=== PATIENT | female | born 1955 | race African-American/Black ===

== ENCOUNTER 2016-12-20 10:13 | Observation (INO) | payer OTHER ==
--- NOTE | ~2016-12-20 | CN ---
Consultation Report [facility] [address] [place]. [address] NAME: BRISSA CALLEJAS : 55 STATUS : ADM Chandana PAT#: [id number] AGE: 61 ADM/REG DATE : 12/20/16 MR#: [id number] REPORT SERV DATE: 12/21/16 DICTATED BY: JUDITH BRAGA DATE: 12/20/16 REPORT STATUS : Draft TRANSCRIBED BY: MODL DATE: 12/20/16 ORTHOPEDIC FOOT AND ANKLE CONSULTATION DATE OF CONSULTATION: 12/20/2016 REASON FOR CONSULTATION: Left hallux laceration. ATTENDING PHYSICIAN: Radha Marquez M.D. I was called by the emergency department to evaluate Brissa Callejas. Ms. Callejas is a pleasant 61-year-old female, who lives at [facility]. She ambulates with a walker. She is independent. This morning, she got up to go the bathroom and hit her toe on something. She is not exactly sure what she hit her toe on. She had a deep laceration that went through the EHL tendon into the IP joint of her great toe. ER physician called me for open irrigation and debridement in the operating room. She does suffer from diabetes, seizure disorder, and some other medical conditions. See below for full details. She was most recently admitted in September of 2016 for acute encephalopathy likely secondary to elevated ammonia as well as some possible dehydration. PAST MEDICAL HISTORY: Hypertension, benign brain tumor with history of craniotomy and resection, non-insulin dependent diabetes mellitus type 2, seizure disorder, chronic iron deficiency anemia, peripheral neuropathy, and obesity. SOCIAL HISTORY: She currently resides at [facility] in the assisted-living section. She has two daughters, one of which is at the bedside. Her daughter is an ER nurse. She has previous history of tobacco use. She quit around 2001. She smoked 2 packs per day for 20 years. No significant alcohol intake. Some social alcohol use in the past, but nothing that is current. She is independent. She does ambulate independently, but requires assisted living. REVIEW OF SYSTEMS: She was in her usual state of health at the time of the evaluation. She denies fevers, chills, nausea, vomiting, abdominal pain, shortness of breath, or chest pain. Because of her severe peripheral neuropathy, she admits that she is in absolutely no pain. FAMILY HISTORY: Positive for multiple cancers throughout her siblings and parents. History of stomach cancer, throat cancer, and breast cancer. PAST SURGICAL HISTORY: She has a brain tumor resection and craniotomy in 1999, and abdominal hysterectomy. MEDICATIONS: Home medications are reviewed and attached in the MAR. PHYSICAL EXAMINATION: Consultation Report [address] [place]. [address] NAME: BRISSA CALLEJAS : 55 STATUS : ADM Chandana PAT#: [id number] AGE: 61 ADM/REG DATE : 12/20/16 MR#: [id number] REPORT SERV DATE: 12/21/16 DICTATED BY: JUDITH BRAGA DATE: 12/20/16 REPORT STATUS : Draft TRANSCRIBED BY: JESSENIA DATE: 12/20/16 VITAL SIGNS: Reveals she is afebrile. Temperature 97.8, respirations 16, pulse 93, O2 sats 100%. GENERAL: She is sitting comfortably in the hospital bed. She is alert and oriented x3. HEAD: Atraumatic. MUSCULOSKELETAL: Cervical spine nontender to gentle range of motion. EYES: Pupils equal to light and reactive. EXTREMITIES: Bilateral upper extremities, full active and passive range of motion without any discomfort. CHEST: Nonlabored breathing. ABDOMEN: Obese. HEART: Regular rate. EXTREMITIES: Bilateral lower extremities, no skin lesions involving her right lower extremity. The left lower extremity reveals a full thickness laceration on the dorsum of the foot. It extends directly into the IP joint. It goes completely through the hallux via EHL at the level of the IP joint. Cartilage in the joint is visible. LABORATORY DATA: Labs reveal a glucose of 267. White blood cell 7.7, hemoglobin 11.0. IMAGING: Left foot x-rays were taken that were normal. IMPRESSION: 1. Open dislocation of left great toe. 2. Left extensor hallucis longus laceration. 3. Left traumatic open wound. PLAN: Lengthy discussion with the patient regarding her diagnosis and treatment options. I recommended irrigation and debridement in the operating room. We would also reduce the dislocation of the toe and repair of the EHL tendon after all necrotic and devitalized tissue had been completely removed. The patient was agreeable to this plan. All of her questions were answered, consent was signed, and she wished to proceed. JAY/JESSENIA Judith Braga MD / [id number] CC: Toy Oleary M.D.
--- NOTE | ~2016-12-20 | DS ---
Discharge Summary [facility] [address] [facility] [place]. [address] NAME: JYOTI ESTRADA : 55 STATUS : DIS Chandana PAT#: [id number] AGE: 61 ADM/REG DATE : 12/20/16 MR#: [id number] REPORT SERV DATE: 12/22/16 DICTATED BY: JR. LUU WILLIAM JOHN DATE: 12/21/16 REPORT STATUS : Draft TRANSCRIBED BY: JESSENIA DATE: 12/21/16 ADMISSION DATE: 12/20/2016 DISCHARGE DATE: 12/21/2016 DISCHARGE DIAGNOSES: Include: 1. Left hallux laceration. 2. Left open hallux dislocation. 3. Left extensor hallucis longus avulsion. 4. Diabetes mellitus type 2 with neuropathy. 5. History of hypertension. 6. Seizure disorder. OPERATIONS/PROCEDURES AND TREATMENTS: Include: 1. Open treatment of IP joint dislocation, left foot EHL tendon repair. 2. Irrigation and debridement down to and including bone of a left open IP joint dislocation. 3. Left foot x-ray done 12/20/2016 showed no evidence of acute left foot abnormality. DISCHARGE MEDICATIONS: Include: 1. Norvasc 5 mg orally daily. 2. Vitamin D3 50,000 units every seven days. 3. Ferrex 150 mg daily. 4. Neurontin 300 mg orally at bedtime. 5. Keppra 750 mg orally twice a day. 6. Lactulose 30 mL every Tuesday, Tuesday, and Tuesday. 7. Mag-Ox 800 mg orally twice a day. 8. Dilantin 100 mg orally three times a day. 9. Simvastatin 10 mg orally daily. 10.Maxzide 37.5/25 one tablet every day. 11.Clonidine 0.1 mg at bedtime. 12.Clonidine TTS two patch changing every seven days. 13.Glucovance 5/500 one tablet four times a day. 14.Fioricet one tablet orally daily as needed. 15.Prevacid 30 mg orally twice a day. 16.Keflex 500 mg orally every six hours x5 days. HOSPITAL COURSE: The patient is a pleasant 61-year-old female, who resides at [facility] assisted living, who presented to the emergency room on 12/20/2016 after getting up and going to the bathroom hitting her toe with a deep laceration to the bone, including tendon. For details of the admission history, physical, and presenting data, please see Dr. Roper's dictated history and physical. The patient admitted to the hospital. She was seen in consultation by Dr. Finch and underwent a repair of the fracture/dislocation as above. The patient will complete five-day course of Keflex, weightbearing as tolerated, and follow up with Dr. Finch in one week. Discharge Summary [address] [address] NAME: JYOTI ESTRADA : 55 STATUS : DIS Chandana PAT#: [id number] AGE: 61 ADM/REG DATE : 12/20/16 MR#: [id number] REPORT SERV DATE: 12/22/16 DICTATED BY: JR. LUU WILLIAM JOHN DATE: 12/21/16 REPORT STATUS : Draft TRANSCRIBED BY: JESSENIA DATE: 12/21/16 Regarding the diabetes, neuropathy, hypertension, and seizure disorder, these were stable throughout the hospitalization and were not addressed. For discharge exam and laboratory, please see daily progress note. DISCHARGE DIET: ADA. ACTIVITY: Weightbearing as tolerated on the left foot. WJF/JESSENIA Fred Luu Jr, MD / [id number] CC: Fred Luu Jr, MD Mark Heinsohn, M.D.
--- NOTE | ~2016-12-20 | HP ---
History And Physical [id number] [place]. [address] NAME: JYOTI ESTRADA : 55 STATUS : ADM Chandana PAT#: [id number] AGE: 61 ADM/REG DATE : 12/20/16 MR#: [id number] REPORT SERV DATE: 12/20/16 DICTATED BY: SANDRA MARQUEZ DATE: 12/20/16 REPORT STATUS : Draft TRANSCRIBED BY: MODL DATE: 12/20/16 DATE OF ADMISSION: 12/20/2016 CHIEF COMPLAINT: Laceration of the left great toe. HISTORY OF PRESENT ILLNESS: The patient is a very pleasant 61-year-old female. She lives at [facility]. She ambulates with a walker. She is independent. Apparently this morning, she got up to go to the bathroom, she hit her toe on something, they are not sure what. She had a deep laceration all the way to bone and tendon. It was felt that she needed to the OR for a washout and probable closing of the wound. She does suffer from diabetes, a seizure disorder, and some other medical conditions which will be referenced below. She denies chest pain or shortness of breath. She has not had a fever. No nausea, vomiting, or diarrhea. She has, otherwise, felt well. Her last hospitalization was in September 2016, at that time, she was admitted with an acute encephalopathy, likely secondary to elevated ammonia as well as some possible dehydration. She got better though and went back to her assisted living facility. PAST MEDICAL HISTORY: 1. Hypertension. 2. Benign brain tumor with history of craniotomy and resection. 3. Znt-asisvnl-qeagpsewg diabetes mellitus type 2. 4. Seizure disorder. 5. Chronic iron deficiency anemia. 6. Peripheral neuropathy. 7. Obesity. SOCIAL HISTORY: She currently resides at [facility] in the assisted living section. She has two daughters, one which is at bedside. She had a previous history of tobacco use, she quit around 2001. She smoked two packs per day for about 20 years. No significant alcohol intake, social intake in the past, but none currently. She is fairly independent. She does ambulate independently, but requires assisted living. FAMILY HISTORY: Her family medical history is positive for multiple cancers throughout her siblings and parents. There is a history of stomach cancer, a history of throat cancer, and history of breast cancer. PAST SURGICAL HISTORY: She has had a brain tumor resection and craniotomy in 1999 and abdominal hysterectomy. MEDICATIONS: Home medications are reviewed and attached in the MAR. REVIEW OF SYSTEMS: Full 10-point review of systems obtained and pertinent positives are mentioned in the HPI. PHYSICAL EXAMINATION: VITAL SIGNS: BP 145/70, temp 97.8, respiratory rate 16, pulse 93, and saturations 100%. History And Physical [address] [address] NAME: JYOTI ESTRADA : 55 STATUS : ADM Chandana PAT#: [id number] AGE: 61 ADM/REG DATE : 12/20/16 MR#: [id number] REPORT SERV DATE: 12/20/16 DICTATED BY: SANDRA MARQUEZ DATE: 12/20/16 REPORT STATUS : Draft TRANSCRIBED BY: JESSENIA DATE: 12/20/16 GENERAL: A well-developed female. HEENT: Normocephalic and atraumatic. HEART: Regular rate and rhythm. LUNGS: Grossly clear. ABDOMEN: Soft and nontender. EXTREMITIES: Warm and dry. She has 2+ pulses at the feet. She has a large laceration in her left great toe all the way to the bone and the tendon, it is open. Hemostasis, however, has been achieved. Again, she has 2+ pulses at the feet bilaterally. LAB AND X-RAY STUDIES: All pending. EKG is pending. ASSESSMENT/PLAN: 1. Deep laceration of the left great toe. Given the patient has neuropathy and diabetes, I think it is essential to close the wound as well as wash it out. She has received a tetanus vaccine in the ER. She is going to go to the OR today. I will make her n.p.o., provide some IV fluids while she is n.p.o. We will hold her Glucovance while she is n.p.o. We will await Dr. Finch, who plans to take her to the OR this afternoon. 2. Diabetes mellitus. We will resume her Glucovance when she is allowed to eat and do fingerstick blood sugars a.c. and h.s. with level 1 sliding scale. 3. History of hypertension. We will continue her home antihypertensives. 4. History of seizure disorder. She had a Keppra this morning. She had her Dilantin this morning. I am going to go ahead and give her noon dose of Dilantin. 5. History of peripheral neuropathy. 6. Deep venous thrombosis prophylaxis. Start Lovenox tomorrow. She still in the hospital given that she has an open wound, that is bleeding, I am going to hold it today. 7. Disposition. Pending above aforementioned plan and workup. LEON/JESSENIA Sandra Marquez M.D. / [id number] CC: Juan Luis Gallegos M.D.
--- NOTE | ~2016-12-20 | OP ---
Record Of Operation [facility] [address] [facility] [place]. [address] NAME: BRISSA CALLEJAS : 55 STATUS : ADM Chandana PAT#: [id number] AGE: 61 ADM/REG DATE : 12/20/16 MR#: [id number] REPORT SERV DATE: 12/21/16 DICTATED BY: JUDITH FINCH DATE: 12/20/16 REPORT STATUS : Draft TRANSCRIBED BY: JESSENIA DATE: 12/20/16 DATE OF PROCEDURE: 12/20/2016 PREOPERATIVE DIAGNOSES: 1. Left open hallux dislocation. 2. Left EHL avulsion. POSTOPERATIVE DIAGNOSES: 1. Left open hallux dislocation. 2. Left EHL avulsion. PROCEDURE: 1. Open treatment of IP joint dislocation, [address] .. 2. Left foot EHL tendon repair, [address]. 3. Irrigation and debridement down to and including bone, left open IP joint dislocation, 50[address]. 4. Live FluoroScan imaging, intraoperative, 82165. ANESTHESIA: General. COMPLICATIONS: None. INDICATION FOR OPERATION: Brissa Callejas is a pleasant 61-year-old female who suffered the above-mentioned injury. Risks and benefits of surgical intervention were discussed at length with the patient. All of her questions were answered. She wished to proceed. DESCRIPTION OF PROCEDURE: Brissa was brought back to the operating room where general anesthesia was initiated. Left lower extremity was prepped and draped in the usual sterile fashion and an Esmarch ankle tourniquet was placed. We inspected the injury to left great toe. This was an open IP joint dislocation. The injury appeared to be an avulsion of the EHL tendon. There was a small piece of bone that emanated from the dorsal aspect of the base of the proximal phalanx that was still attached to the EHL tendon. Initially, we performed irrigation and debridement of this open wound. This included irrigation and debridement of the skin, subcutaneous tissue, deep tissue including bone. There were small bone avulsion fragments that were sharply excise. We used 3 L of a Pulsavac. Sequential irrigation and debridement was performed until all necrotic and devitalized tissue had been thoroughly removed. Next, we reduced the IP joint dislocation. Under image guidance, a 0.062 inch K-wire was advanced across the distal phalanx holding the IP joint in anatomic position. This was advanced down to the base of the proximal phalanx without passing into the MTP joint. Finally, we repaired the EHL tendon avulsion. Tendon was reduced into its anatomic footprint and this was repaired with interrupted 3-0 nylon suture. The subcutaneous tissues and skin were closed in standard fashion utilizing a "no-touch" technique with 3-0 nylon suture. Final FluoroScan imaging included AP and lateral views of the foot. Images showed acceptable hardware position with the reduction of the IP joint dislocation. The images were printed and saved. Record Of Operation [address] [address] NAME: BRISSA CALLEJAS : 55 STATUS : ADM Chandana PAT#: [id number] AGE: 61 ADM/REG DATE : 12/20/16 MR#: [id number] REPORT SERV DATE: 12/21/16 DICTATED BY: JUDITH FINCH DATE: 12/20/16 REPORT STATUS : Draft TRANSCRIBED BY: JESSENIA DATE: 12/20/16 Bulky sterile dressings were applied. K-wire was cut, bent, and capped. The patient did well throughout the case. She awoke in the operating room and was transferred to recovery room in satisfactory condition. JAY/JESSENIA Judith Finch MD / [id number]
[~2016-12-20 10:13] MED LIST: *UNABLE3; ARICEPT5 PO; BIOTIN PO; CAT1 PO; CATAPRES2 TOP; D100 PO; FERREX 150150 MG PO; FERROUS SULF325 M1 PO; FIORICET 50-301 EACH PO; GLUCOV5 PO; KEPPRA500 PO; KEPPRA750 MG PO; LACT30UDL PO; LYRICA50 PO; MAGOX4 PO; MAX25 PO; NEUR300 PO; NORV5 PO; OTC IRON; POLY IRON150 MG PO; PREV30 PO; VITD PO; ZOCOR10 PO; [UNRECOGNIZED DRUG - CODE] PO
[2016-12-20] MEDS ORDERED: GLUCOV5 PO (12:24)
[2016-12-20] MEDS ORDERED: ZOCOR10 PO (12:25)
[2016-12-20] MEDS ORDERED: NORV5 PO (12:25)
[2016-12-20] MEDS ORDERED: NEUR300 PO (12:26)
[2016-12-20] MEDS ORDERED: FERREX 150150 MG PO (12:26)
[2016-12-20] MEDS ORDERED: MAX25 PO (12:26)
[2016-12-20] MEDS ORDERED: D100 PO (12:27)
[2016-12-20] MEDS ORDERED: CAT1 PO (12:27)
[2016-12-20] MEDS ORDERED: MAGOX4 PO (12:28)
[2016-12-20] MEDS ORDERED: MAXIMUM D3 PO (12:28)
[2016-12-20] MEDS ORDERED: KEPPRA750 MG PO (12:28)
[2016-12-20] MEDS ORDERED: FIORICET 50-301 EACH PO (12:29)
[2016-12-20] MEDS ORDERED: ENULOSE PO (12:30)
[2016-12-20] MEDS ORDERED: PREV30 PO (12:30)
[2016-12-20] MEDS ORDERED: CATAPRES2 TOP (12:37)
[2016-12-20 13:19] LABS: BASOPHILS ABSOLUTE 0.08 10/3/uL (0.0-0.16); EOSINOPHILS 2.9 %; EOSINOPHILS ABSOLUTE 0.22 10/3/uL (0.0-0.53); ER CBC TAT 0 Hrs 05 Mins; HEMATOCRIT 32.7 % (36.0-48.0); IMMATURE GRANULOCYTES ABSOLUTE 0.08 10/3/uL (0.0-0.11); LYMPHOCYTES 33.1 %; LYMPHOCYTES ABSOLUTE 2.54 10/3/uL (0.67-4.30); MANUAL DIFF NO %; MEAN CORPUS HGB CONC 33.6 g/dL (32.0-36.0); MEAN CORPUSCULAR HEMOGLOB 26.1 pg (26.0-34.0); MEAN CORPUSCULAR VOLUME 77.7 fL (80-100); MEAN PLATELET VOLUME 10.6 fL (9.2-13.0); MONOCYTES 9.5 %; MONOCYTES ABSOLUTE 0.73 10/3/uL (0.21-1.20); NEUTROPHILS 52.5 %; NEUTROPHILS ABSOLUTE 4.02 10/3/uL (2.02-8.40); PLATELET COUNT 223 10/3/uL (150-400); RBC DISTRIBUTION WIDTH 14.5 % (12.0-16.0); RED CELL COUNT 4.21 10/6/uL (4.0-5.6); WHITE BLOOD CELLS 7.7 10/3/uL (4.5-10.5)
[2016-12-20 14:49] LABS: ALKALINE PHOSPHATASE 121 U/L (45-117); CALCIUM, SERUM 8.5 MG/DL (8.5-10.4); CHLORIDE, SERUM 102 MMOL/L (96-112); CREATININE 1.23 MG/DL (0.55-1.02); GFR AFRICAN AMERICAN 55 ML/MIN (>=60); GFR NON AFRICAN AMERICAN 47 ML/MIN (>=60); SGPT(ALT) 23 U/L (5-65); SODIUM, SERUM 141 MMOL/L (135-148); TOTAL PROTEIN 7.3 G/DL (6.0-8.5)
[2016-12-20 14:50] LABS: A/G RATIO 0.7 (0.7-1.9); ALBUMIN 2.9 G/DL (3.5-5.0); BUN (BLOOD UREA NITROGEN) 22 MG/DL (6-23); CO2 (CARBON DIOXIDE) 30 MMOL/L (24-34); GLOBULIN 4.4 G/DL (2.5-4.1); GLUCOSE, SERUM 260 MG/DL (60-99); POTASSIUM, SERUM 4.3 MMOL/L (3.5-5.3); SGOT(AST) 9 U/L (5-40); TOTAL BILIRUBIN < 0.1 MG/DL (0-1.2)
[2016-12-20 15:49] LABS: INTERNATIONAL NORMAL RATI 1.1 UNITS (-); PARTIAL THROMBO TIME 30.8 SEC (22.5-37.2); PROTIME (NOT ORD) 13.9 SEC (12.0-14.5)
[2016-12-21 05:19] LABS: BASOPHILS 0.7 %; BASOPHILS ABSOLUTE 0.06 10/3/uL (0.0-0.16); EOSINOPHILS 2.6 %; EOSINOPHILS ABSOLUTE 0.24 10/3/uL (0.0-0.53); HEMATOCRIT 31.1 % (36.0-48.0); HEMOGLOBIN 10.3 g/dL (12.0-16.0); IMMATURE GRANULOCYTES 0.7 %; IMMATURE GRANULOCYTES ABSOLUTE 0.06 10/3/uL (0.0-0.11); LYMPHOCYTES ABSOLUTE 2.39 10/3/uL (0.67-4.30); MANUAL DIFF NO %; MEAN CORPUS HGB CONC 33.1 g/dL (32.0-36.0); MEAN CORPUSCULAR HEMOGLOB 26.2 pg (26.0-34.0); MEAN CORPUSCULAR VOLUME 79.1 fL (80-100); MEAN PLATELET VOLUME 10.7 fL (9.2-13.0); MONOCYTES 11.5 %; MONOCYTES ABSOLUTE 1.06 10/3/uL (0.21-1.20); NEUTROPHILS 58.5 %; NEUTROPHILS ABSOLUTE 5.37 10/3/uL (2.02-8.40); PLATELET COUNT 202 10/3/uL (150-400); RBC DISTRIBUTION WIDTH 14.2 % (12.0-16.0); RED CELL COUNT 3.93 10/6/uL (4.0-5.6); WHITE BLOOD CELLS 9.2 10/3/uL (4.5-10.5)
[2016-12-21 05:56] LABS: BUN (BLOOD UREA NITROGEN) 23 MG/DL (6-23); CALCIUM, SERUM 8.5 MG/DL (8.5-10.4); CHLORIDE, SERUM 102 MMOL/L (96-112); CREATININE 1.04 MG/DL (0.55-1.02); GFR AFRICAN AMERICAN 67 ML/MIN (>=60); GFR NON AFRICAN AMERICAN 58 ML/MIN (>=60); GLUCOSE, SERUM 291 MG/DL (60-99); SODIUM, SERUM 137 MMOL/L (135-148)
[2016-12-21 05:57] LABS: CO2 (CARBON DIOXIDE) 25 MMOL/L (24-34); POTASSIUM, SERUM 4.4 MMOL/L (3.5-5.3)
[2016-12-21] MEDS ORDERED: KEPPRA500 PO (14:17)
[2017-04-23] MEDS ORDERED: NOVOLOG SC (21:24)
[2017-04-23] MEDS ORDERED: PRAND1 PO (21:24)
[2017-04-23] MEDS ORDERED: NORV10 PO (21:25)
[2017-04-23] MEDS ORDERED: ASAB PO (21:25)
[2017-04-23] MEDS ORDERED: HCTZ25B PO (21:25)
[2017-04-23] MEDS ORDERED: EXELON4.6T TOP (21:26)
[2017-04-23] MEDS ORDERED: LANTUS SC (21:26)
[2017-04-23] MEDS ORDERED: KEPPRA750 MG PO (21:26)
[2017-04-23] MEDS ORDERED: PRIN20 PO (21:26)
[2017-04-23] MEDS ORDERED: PREV30 PO (21:27)
[2017-04-23] MEDS ORDERED: POLY IRON 150 MG PO (21:27)
[2017-04-23] MEDS ORDERED: MULTIVITAMI1 PO (21:27)
[2017-04-23] MEDS ORDERED: HYDRALAZINE100 MG PO (21:33)
[2017-04-23] MEDS ORDERED: D100 PO (21:33)
[2017-04-23] MEDS ORDERED: VANCO1P IV (21:34)
[2017-04-23] MEDS ORDERED: VITD PO (21:35)
[2017-04-23] MEDS ORDERED: ALIGN4 MG PO (21:35)
[2017-04-23] MEDS ORDERED: CATAPRES3 TOP (21:36)
== END 2016-12-21 14:58 | disposition home or self-care (01) ==
LOC: ER 10:13 → SDC/OF 15:35 → 5SO 16:11 → CDU1 16:20 → CDU2 16:46
PROVIDERS: Internal Medicine; Orthopaedic Surgery Foot and Ankle Surgery; Physician Assistant
PROC: 0SS Lower Joints, Reposition (ICD-10-PCS; principal; 2016-12-20 19:45)
DX: S93.112A Dislocation of interphalangeal joint of left great toe, initial encounter (principal); S91.112A Laceration without foreign body of left great toe without damage to nail, initial encounter; S91.302A Unspecified open wound, left foot, initial encounter; I10 Essential (primary) hypertension; G40.909 Epilepsy, unspecified, not intractable, without status epilepticus; D50.9 Iron deficiency anemia, unspecified; G62.9 Polyneuropathy, unspecified; E11.40 Type 2 diabetes mellitus with diabetic neuropathy, unspecified; E66.9 Obesity, unspecified; Z87.891 Personal history of nicotine dependence; Z90.710 Acquired absence of both cervix and uterus
CPT/HCPCS: 73630-LT; 80048; 80053; 82962; 85025; 85610; 85730; 87040; 90471; 90714; 93005; 96374; 99284; A9270-GY; G0378; J0690; J3010

== ENCOUNTER 2017-01-17 15:43 | Day surgery (SDC) | payer OTHER ==
--- NOTE | ~2017-01-17 | OP ---
Record Of Operation [facility] [address] [place]. [address] NAME: BRISSA CALLEJAS : 55 STATUS : [facility]#: [id number] AGE: 61 ADM/REG DATE : 01/17/17 MR#: [id number] REPORT SERV DATE: 01/18/17 DICTATED BY: JUDITH BRAGA DATE: 01/17/17 REPORT STATUS : Draft TRANSCRIBED BY: JESSENIA DATE: 01/17/17 DATE OF PROCEDURE: 01/17/2017 PREOPERATIVE DIAGNOSES: 1. Left open hallux fracture dislocation. 2. Wound dehiscence with hardware failure. POSTOPERATIVE DIAGNOSES: 1. Left open hallux fracture dislocation. 2. Wound dehiscence with hardware failure. PROCEDURES: 1. Revision left hallux open reduction and internal fixation of an IP joint fracture dislocation. 2. Irrigation and debridement of open fracture. 3. EHL tendon repair. 4. FHL tenotomy. ANESTHESIA: General. COMPLICATIONS: None. INDICATION FOR OPERATION: Brissa Callejas is a pleasant 61-year-old diabetic with peripheral neuropathy, who suffered the above-mentioned injury. She underwent prior open reduction and internal fixation of the dislocation of the IP joint. Unfortunately, the pin recently came out of her toe while she was at home. Her daughter had noticed that the wound had "opened up." I saw her in the office today, where we recommended revision surgery. All of the patient's questions were thoroughly answered, and they wished to proceed. DESCRIPTION OF PROCEDURE: Ms Callejas was brought back to the operating room, where general anesthesia was initiated. Left lower extremity was prepped and draped in usual sterile fashion. Esmarch exsanguination was utilized and an ankle Esmarch tourniquet was placed. Thorough irrigation and debridement of the open wound on the left hallux IP joint was performed. Pulsavac irrigation was utilized. There was no evidence of gross infection to include purulence or significant necrotic tissue. We did send some local tissue samples for culture. Once the samples were sent, the patient received 2 g of IV Ancef. Next, we proceeded with sequential irrigation and debridement until 3 L of normal saline had thoroughly flushed this wound. Once flushed, we focused our attention on the toe. She had a significant contracture of the FHL tendon. This was pulling the toe in a significantly flex position. For this reason, through the joint, we performed an FHL tenotomy. We used a 15 blade to release the FHL tendon. This corrected some of this severe joint flexion contracture. Next, we performed repair of the EHL tendon. We used a 2-0 nylon suture, which was passed through the tendon and out through the nail bed. This suture captured the tendon and reduced it back to its insertion point on the base of the proximal phalanx. With the toe held in a reduced position, this EHL tendon was repaired. Next, we Record Of Operation [place] [facility] [place]. [address] NAME: BRISSA CALLEJAS : 55 STATUS : [facility] PAT#: [id number] AGE: 61 ADM/REG DATE : 01/17/17 MR#: [id number] REPORT SERV DATE: 01/18/17 DICTATED BY: JUDITH BRAGA DATE: 01/17/17 REPORT STATUS : Draft TRANSCRIBED BY: JESSENIA DATE: 01/17/17 performed open reduction and internal fixation of the IP joint dislocation. This included reduction of the deformity with percutaneous pinning utilizing a 0.062-inch K-wire. This K- wire was started through a new tract at the tip of the toe and retrograded across the IP and MTP joints with the toe held in reduced position. Two pins were placed for additional fixation. Each pin captured the head of the first metatarsal. The construct was stable at the conclusion of the case. At this time, additional irrigation was performed. Skin was closed using a "no-touch" technique on the dorsal aspect of the foot. Bulky sterile dressings were applied. Tourniquet was deflated and the toe pinked up quite nicely. Well- padded forefoot dressing was placed. The patient did well throughout the case. She woke in the operating room and was transferred to recovery room in satisfactory condition. JAY/JESSENIA Judith Braga MD / [id number] CC: Judith Braga MD
[~2017-01-17 15:43] MED LIST changes: +ENULOSE PO; +MAXIMUM D3 PO
[2017-01-17 16:39] LABS: BASOPHILS 0.9 %; BASOPHILS ABSOLUTE 0.06 10/3/uL (0.0-0.16); EOSINOPHILS 1.6 %; EOSINOPHILS ABSOLUTE 0.11 10/3/uL (0.0-0.53); HEMATOCRIT 32.3 % (36.0-48.0); HEMOGLOBIN 10.9 g/dL (12.0-16.0); IMMATURE GRANULOCYTES ABSOLUTE 0.07 10/3/uL (0.0-0.11); LYMPHOCYTES 31.7 %; LYMPHOCYTES ABSOLUTE 2.15 10/3/uL (0.67-4.30); MEAN CORPUS HGB CONC 33.7 g/dL (32.0-36.0); MEAN CORPUSCULAR HEMOGLOB 26.8 pg (26.0-34.0); MEAN CORPUSCULAR VOLUME 79.4 fL (80-100); MEAN PLATELET VOLUME 10.8 fL (9.2-13.0); MONOCYTES 8.8 %; PLATELET COUNT 220 10/3/uL (150-400); RED CELL COUNT 4.07 10/6/uL (4.0-5.6); WHITE BLOOD CELLS 6.8 10/3/uL (4.5-10.5)
[2017-01-17 16:41] LABS: MANUAL DIFF NO %
[2017-01-17 16:50] LABS: CALCIUM, SERUM 8.5 MG/DL (8.5-10.4); CHLORIDE, SERUM 107 MMOL/L (96-112); CO2 (CARBON DIOXIDE) 27 MMOL/L (24-34); CREATININE 1.09 MG/DL (0.55-1.02); GFR AFRICAN AMERICAN 63 ML/MIN (>=60); GFR NON AFRICAN AMERICAN 55 ML/MIN (>=60); SODIUM, SERUM 142 MMOL/L (135-148)
[2017-01-17 16:51] LABS: BUN (BLOOD UREA NITROGEN) 17 MG/DL (6-23); GLUCOSE, SERUM 175 MG/DL (60-99); POTASSIUM, SERUM 4.3 MMOL/L (3.5-5.3)
[2017-04-23] MEDS ORDERED: PRAND1 PO (21:24)
[2017-04-23] MEDS ORDERED: NOVOLOG SC (21:24)
[2017-04-23] MEDS ORDERED: NORV10 PO (21:25)
[2017-04-23] MEDS ORDERED: HCTZ25B PO (21:25)
[2017-04-23] MEDS ORDERED: ASAB PO (21:25)
[2017-04-23] MEDS ORDERED: KEPPRA750 MG PO (21:26)
[2017-04-23] MEDS ORDERED: PRIN20 PO (21:26)
[2017-04-23] MEDS ORDERED: LANTUS SC (21:26)
[2017-04-23] MEDS ORDERED: EXELON4.6T TOP (21:26)
[2017-04-23] MEDS ORDERED: MULTIVITAMI1 PO (21:27)
[2017-04-23] MEDS ORDERED: PREV30 PO (21:27)
[2017-04-23] MEDS ORDERED: POLY IRON 150 MG PO (21:27)
[2017-04-23] MEDS ORDERED: HYDRALAZINE100 MG PO (21:33)
[2017-04-23] MEDS ORDERED: D100 PO (21:33)
[2017-04-23] MEDS ORDERED: VANCO1P IV (21:34)
[2017-04-23] MEDS ORDERED: ALIGN4 MG PO (21:35)
[2017-04-23] MEDS ORDERED: VITD PO (21:35)
[2017-04-23] MEDS ORDERED: CATAPRES3 TOP (21:36)
== END 2017-01-17 21:28 | disposition home or self-care (01) ==
LOC: SDC 15:43
PROVIDERS: Anesthesiology; Orthopaedic Surgery Foot and Ankle Surgery
PROC: 0LQW0ZZ Repair Left Foot Tendon, Open Approach (ICD-10-PCS; 2017-01-17)
PROC: 0SS Lower Joints, Reposition (ICD-10-PCS; 2017-01-17)
PROC: 0QBR0ZZ Excision of Left Toe Phalanx, Open Approach (ICD-10-PCS; principal; 2017-01-17 16:45)
PROC: 0LNW0ZZ Release Left Foot Tendon, Open Approach (ICD-10-PCS; 2017-01-17 16:45)
DX: T84.223A Displacement of internal fixation device of bones of foot and toes, initial encounter (principal); T81.33XA Disruption of traumatic injury wound repair, initial encounter; S93.112 Dislocation of interphalangeal joint of left great toe; X58.XXXS Exposure to other specified factors, sequela; M62.472 Contracture of muscle, left ankle and foot; I10 Essential (primary) hypertension; E11.42 Type 2 diabetes mellitus with diabetic polyneuropathy; G40.909 Epilepsy, unspecified, not intractable, without status epilepticus; K21.9 Gastro-esophageal reflux disease without esophagitis; D64.9 Anemia, unspecified; D57.3 Sickle-cell trait; Z82.49 Family history of ischemic heart disease and other diseases of the circulatory system; Z83.3 Family history of diabetes mellitus; Z82.61 Family history of arthritis; Z79.84 Long term (current) use of oral hypoglycemic drugs; Z79.899 Other long term (current) drug therapy
CPT/HCPCS: 80048; 82962; 85025; 87070; 87075; 87205; J0360; J0690; J2250; J2405; J3010

== ENCOUNTER 2017-04-05 13:03 | Inpatient (IN) | payer MEDICARE ==
--- NOTE | ~2017-04-05 | DS ---
Discharge Summary [facility] [address] [place]. [address] NAME: JYOTI ESTRADA : 55 STATUS : DIS IN PAT#: [id number] AGE: 61 ADM/REG DATE : 04/05/17 MR#: [id number] REPORT SERV DATE: 04/24/17 DICTATED BY: JENELLE HOLLAND DATE: 04/22/17 REPORT STATUS : Draft TRANSCRIBED BY: JESSENIA DATE: 04/22/17 Data Collection from hospitalization DISCHARGE DIAGNOSES: 1. Osteomyelitis of the left great toe (proximal phalanx) and metatarsal. 2. Peripheral arterial disease of the left lower extremities. 3. Hypertension - uncontrolled. 4. Type 2 diabetes mellitus. 5. Uncontrolled hypertension. 6. 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 7. Hyperlipidemia. 8. Neuropathy. 9. 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 10.Iron deficiency anemia. 11.Gait instability. 12.Osteoarthritis. 13.Reflux esophagitis. 14.Urinary incontinence. CONSULTATIONS: 1. Arcenio Morrison M.D. 2. Feng Finch MD. 3. Fili Marie M.D. PROCEDURES PERFORMED: 1. Abdominal aortogram, left leg angiogram, percutaneous angioplasty of left tibioperoneal trunk on 04/07/2017. 2. Irrigation and debridement down to including bone, left hallux tip ulceration, partial excision of left hallux phalanx, and partial excision of left first metatarsal on 04/09/2017. 3. Venous Doppler ultrasound of the left lower extremity on 04/05/2017. 4. MRI of the left lower extremity with and without contrast on 04/08/2017. MEDICATIONS: Norvasc 10 mg daily, aspirin 81 mg daily, Lipitor 20 mg at bedtime, hydrochlorothiazide 25 mg daily, Keppra 750 mg twice a day, Prinivil 20 mg daily, Dilantin 100 mg three times a day, Prandin 1 mg before meals, Exelon 4.6 mg topically daily, Catapres TTS 0.3 mg topically every seven days, Apresoline 100 mg every eight hours, Lantus insulin as instructed, Constulose 30 mL twice a day as needed for constipation, Centrum tablets one tablet daily, Poly-Iron 150 mg daily, vitamin D 69077 units weekly, Prevacid 30 mg daily, and vancomycin 1.5 g IV every 24 hours through 05/20/2017. CONDITION AT DISCHARGE: Stable. DISPOSITION: The patient was discharged to [facility] on an 1800- calorie diabetic diet with activities as instructed. She would follow up with Dr. Finch one week following discharge. HOSPITAL COURSE: This is a 61-year-old female who joined the [facility] Discharge Summary [address] [address] NAME: JYOTI ESTRADA : 55 STATUS : DIS IN PAT#: [id number] AGE: 61 ADM/REG DATE : 04/05/17 MR#: [id number] REPORT SERV DATE: 04/24/17 DICTATED BY: JENELLE HOLLAND DATE: 04/22/17 REPORT STATUS : Draft TRANSCRIBED BY: JESSENIA DATE: 04/22/17 about two weeks prior to this admission. She lives independently at [facility]. She qualified for a PACE program. Due to some cognitive decline, gait instability, diabetic neuropathy, and other chronic diseases, she presented to the clinic on the day of this admission with increasing swelling and pain in the left lower extremity. She said this started the day previously. She has had chronic problems with the left leg with mild swelling, but it had exceeded what it normally does and was causing more pain and it was hot. She was admitted to the hospital at this time for further evaluation and treatment. Upon admission, the vancomycin that was started the day prior to admission was changed to Ancef. Blood cultures were obtained. Procalcitonin level was normal. Aspirin was added to her regimen. Blood pressure was uncontrolled. Amlodipine was continued. Hydralazine would be increased. Clonidine patch was going to be changed. Her Levemir was increased. We were going to consider changing her to Prandin prior to discharge from metformin and glyburide. Some oral metformin was going to be continued here. She does have iron deficiency anemia. She is on oral iron. We would avoid NSAIDs and contrast due to her low stage 2-3 chronic kidney disease. A venous Doppler ultrasound of the left lower extremity showed no evidence of acute left lower extremity DVT. The following day, she was seen by Dr. Fili Marie. The patient has a history of type 2 diabetes mellitus with chronic left leg swelling and left foot wounds with discoloration of the left foot. No claudication or rest pain was identified due to neuropathy. There is a nonhealing left great toe wound and there was a wound near the medial malleolus. She had pitting edema to the midcalf. The foot was warm and pink with good capillary refill and it was felt that the patient would benefit from an abdominal aortogram and left leg angiogram. On 04/07/2017, the patient was taken to the operating room by Dr. Fili Marie where she underwent the above-mentioned procedure. She tolerated this well, and there were no complications. On 04/08/2017, she was seen by Dr. Feng Finch regarding left foot osteomyelitis. She has had increased swelling and pain of the left lower extremity. Blood cultures were negative. She was felt to have osteomyelitis of the left great toe. An MRI had been consistent with osteomyelitis along the pin tract. Treatment options were discussed and it was elected to proceed with surgical intervention. She did seem to be more alert. Hydralazine was increased. IV analgesia were continued for now. The patient was also seen by Dr. Arcenio Morrison regarding osteomyelitis. Initially, the patient had been placed on vancomycin. She was then changed to Ancef. Her MRI had been very suspicious of osteomyelitis. Plans were made for surgery to be performed. His impression included probable osteomyelitis of the left great toe and probable infectious cellulitis on admission of the left lower leg. Ancef was continued. She appeared to be doing well on this. On 04/09/2017, she was taken to the operating room where she underwent the above-mentioned procedure. She tolerated this well, and there were no complication. The patient's blood sugars and blood pressure were elevated. She had no complaints of pain. She had been sleeping okay. She denied any anxiety. IV fluids were stopped. Lisinopril was added. Aspirin and statin were continued. Levemir was increased. The next day, she remained afebrile. Pending the operative culture results, vancomycin was begun. She had no new complaints. It was felt she would need long-term antibiotic treatment. She was to try and elevate the leg as much as possible. A PICC line was inserted. Discharge planning was performed. She continued to do well. On 04/11/2017, the operative cultures revealed coag- Discharge Summary [place] [id number] [id number] NAME: JYOTI ESTRADA : 55 STATUS : DIS IN PAT#: [id number] AGE: 61 ADM/REG DATE : 04/05/17 MR#: [id number] REPORT SERV DATE: 04/24/17 DICTATED BY: JENELLE HOLLAND DATE: 04/22/17 REPORT STATUS : Draft TRANSCRIBED BY: JESSENIA DATE: 04/22/17 negative Staph. She seemed to be in good spirits. Her lungs were clear. She was going to remain on IV antibiotics through 05/20/2017. Discharge instructions were given. Lisinopril was increased. Due to her improved and stable condition, she was discharged to [facility] with the above-stated instructions. Information collected by: Yamel Villafana I submit the above information as my discharge summary. ES/JESSENIA Jenelle Holland M.D. / [id number] CC: Juan Luis Galindo M.D. Matthew M. Buchanan, MD Larry Sprouse II, M.D. Hal Hill, M.D. [facility]
--- NOTE | ~2017-04-05 | CN ---
Consultation Report [facility] [address] [place]. [address] NAME: JYOTI ESTRADA : 55 STATUS : ADM IN PAT#: [id number] AGE: 61 ADM/REG DATE : 04/05/17 MR#: [id number] REPORT SERV DATE: 04/08/17 DICTATED BY: YANETH MORRISON DATE: 04/08/17 REPORT STATUS : Draft TRANSCRIBED BY: MODL DATE: 04/08/17 INFECTIOUS DISEASE CONSULTATION DATE OF CONSULTATION: 04/08/2017 REASON FOR CONSULTATION: Osteomyelitis. HISTORY OF PRESENT ILLNESS: This is a 61-year-old female with a past medical history notable for diabetes with neuropathy, along with other medical problems as outlined below. In late November of this year, she underwent open treatment of an IP joint dislocation of her left great toe along with left foot EHL tendon repair by Dr. Finch. On 01/17/2017 a month later, she had developed a wound dehiscence with hardware failure and underwent revision of the left hallux ORIF. The patient was readmitted to the hospital on 04/05/2017 with increasing swelling and pain of her left lower leg which began the day before. She was felt to have an infectious cellulitis. She had no fever. Her admission white blood cell count was 10.5. She was placed initially on vancomycin, and this was changed to Ancef. An x-ray of the left foot, however, showed changes suggestive of osteomyelitis of the proximal phalanx of left great toe and distal aspect of the first metatarsal. The patient was seen by Dr. Finch who has ordered an MRI scan and is very suspicious of osteomyelitis and plans for surgery tomorrow. The cellulitic changes have improved during this admission. The patient was also evaluated by Vascular Surgery and yesterday underwent arteriogram along with angioplasty of I believe the left tibioperoneal trunk. She has had no fever here in the hospital. Her white blood cell count is normal. She denies any gastrointestinal symptoms. PAST MEDICAL HISTORY: In addition to her diabetes with neuropathy is notable for mild chronic kidney disease, hyperlipidemia, hypertension, iron-deficiency anemia, osteoarthritis, and urinary incontinence. She has had hysterectomy. 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 She does have some mild dementia and has recently moved into independent living facility but has been enrolled in a PACE program. ALLERGIES: NO KNOWN DRUG ALLERGIES. PRESENT MEDICATIONS: In addition to the Ancef include Norvasc, aspirin, Lipitor, Catapres patch, Lovenox, iron, Apresoline, hydrochlorothiazide, insulin sliding scale, Keppra, multivitamins, Protonix, Dilantin, Exelon, and Levemir. SOCIAL HISTORY: The patient is . Daughter is here in the room with her. Past smoker. FAMILY HISTORY: Notable for hypertension and coronary artery disease. REVIEW OF SYSTEMS: As outlined above, otherwise negative. Consultation Report [place] [id number] [facility] [place]. [address] NAME: JYOTI ESTRADA : 55 STATUS : ADM IN [facility]#: [id number] AGE: 61 ADM/REG DATE : 04/05/17 MR#: [id number] REPORT SERV DATE: 04/08/17 DICTATED BY: YANETH MORRISON DATE: 04/08/17 REPORT STATUS : Draft TRANSCRIBED BY: JESSENIA DATE: 04/08/17 PHYSICAL EXAMINATION: VITAL SIGNS: The patient weighs 93 kg. She is afebrile. Blood pressure 192/93, pulse 95, and respiratory rate 16. GENERAL: She is alert, in no acute distress. HEAD AND NECK: Unremarkable. LUNGS: Clear to auscultation anteriorly. CARDIAC: Regular rate and rhythm. Normal S1 and S2 without murmur, gallop, or rub. ABDOMEN: Soft and nontender. Bowel sounds are present. EXTREMITIES: The left lower leg and foot has some diffuse edema. There is minimal warmth of the lower leg and foot relative to the right, but no significant erythema. The great toe has some diffuse mild edema and very mild erythema. The patient has a peripheral IV without phlebitis. LABORATORY STUDIES: White blood cell count 6.7, hemoglobin 10.0, platelets 219. Creatinine 0.95. Sedimentation rate 89. C-reactive protein 90.2. Procalcitonin on 04/06/2017 of 0.05. Admission blood cultures negative. Urinalysis is negative. IMAGING STUDIES: As noted above. Left lower extremity ultrasound on admission was negative for DVT. IMPRESSION: Probable osteomyelitis of the left great toe and probable infectious cellulitis on admission of the left lower leg. PLAN: 1. We will continue Ancef for now. She appears to be doing well on it. 2. Await MRI results. 3. The patient will probably go to surgery tomorrow and intraoperative bone cultures will be obtained. If these are unrevealing, I will probably switch her antibiotics to vancomycin given the risk of MRSA or coagulase-negative Staph in her osteomyelitis. MIHIR/JESSENIA Yaneth Morrison M.D. / [id number] CC: Juan Luis Galindo M.D. Matthew M. Buchanan, MD
--- NOTE | ~2017-04-05 | OP ---
Record Of Operation [facility] [address] [place]. [address] NAME: BRISSA CALLEJAS : 55 STATUS : ADM IN LOCATED WITHIN [facility]#: [id number] AGE: 61 ADM/REG DATE : 04/05/17 MR#: [id number] REPORT SERV DATE: 04/09/17 DICTATED BY: JUDITH BRAGA DATE: 04/09/17 REPORT STATUS : Draft TRANSCRIBED BY: JESSENIA DATE: 04/09/17 DATE OF PROCEDURE: 04/09/2017 PREOPERATIVE DIAGNOSES: 1. Left hallux open fracture/dislocation. 2. Left hallux phalanx osteomyelitis. 3. Left hallux metatarsal osteomyelitis. 4. Left hallux cellulitis. POSTOPERATIVE DIAGNOSES: 1. Left hallux open fracture/dislocation. 2. Left hallux phalanx osteomyelitis. 3. Left hallux metatarsal osteomyelitis. 4. Left hallux cellulitis. PROCEDURE: 1. Irrigation and debridement down to including bone, left hallux tip ulceration. 2. Partial excision of left hallux phalanx. 3. Partial excision of left 1st metatarsal. ANESTHESIA: General. COMPLICATIONS: None. INDICATION FOR OPERATION: Brissa Callejas is a pleasant 61-year-old female, who suffered an open hallux fracture/dislocation on 12/20/2016. She underwent irrigation and debridement with ORIF and EHL tendon repair on 12/20/2016. The toe was pinned down to the base of the proximal phalanx. This patient states that the pin "fell out" during the postoperative period. The initial repair failed. We then revise this on 01/17/2017. She was doing well until this recent admission when it was noted that she had increased erythema and edema surrounding the great toe. Lab results revealed an elevated sedimentation rate and CRP. MRI suggested osteomyelitis. For this reason, the risks and benefits of the above-mentioned surgery were discussed at length with her daughter. All of her questions were answered. She wished to proceed. DESCRIPTION OF PROCEDURE: Brissa was brought back to the operating room where general anesthesia was initiated. Left lower extremity was prepped and draped in usual sterile fashion. Esmarch exsanguination was utilized and a well-padded thigh tourniquet was inflated. Longitudinal incision was made over the dorsal aspect of the 1st MTP joint. This incision was carried down to bone. The patient also had an ulceration at the tip of the left hallux toe. Irrigation and debridement of the tip of the left hallux was performed. This was an excisional debridement that included excision of skin, subcutaneous tissue, deep tissue as well as bone. Copious irrigation with Pulsavac at the tip of the toe was performed. Next, we returned to our surgical incision on the dorsum of the foot. This had been carried down to the metatarsal as well as the proximal phalanx. The bone was examined and felt to be soft. Partial excision of the first metatarsal was performed. We used a Record Of Operation [facility] [address] [facility] [place]. [address] NAME: BRISSA CALLEJAS : 55 STATUS : ADM IN LOCATED WITHIN [facility]#: [id number] AGE: 61 ADM/REG DATE : 04/05/17 MR#: [id number] REPORT SERV DATE: 04/09/17 DICTATED BY: JUDITH BRAGA DATE: 04/09/17 REPORT STATUS : Draft TRANSCRIBED BY: MODRubi DATE: 04/09/17 small sagittal saw. We cut back to healthy bleeding bone. We then used a curette to remove additional bone. This bone was sent to Microbiology for culture. On the phalanx side, partial excision of the phalanx was performed. This included debridement of all necrotic and devitalized bone including both the proximal as well as the distal phalanx. Live FluoroScan imaging was performed to confirm appropriate removal of all of the involved bone. Images included AP, oblique, and lateral views of the foot. Images were printed and saved. Copious Pulsavac irrigation was performed. At the conclusion of the case, sequential irrigation and debridement was performed until all necrotic and devitalized tissue had been removed. Next, we packed the bone with Stimulan calcium sulfate beads. These had been made with vancomycin as well as tobramycin. These beads were packed deep into the first metatarsal as well as the distal phalanx and proximal phalanx. Gentle irrigation was performed. Deep tissue was closed over the beads with interrupted 2-0 Prolene suture. Subcutaneous tissues and skin were closed in a single layer using a "no-touch technique" with 2-0 nylon suture. Bulky sterile dressings were applied. The patient did well throughout the case. She awoke in the operating room and was transferred to recovery room in satisfactory condition. JAY/JESSENIA Judith Braga MD / [id number] CC: Juan Luis Galindo M.D.
--- NOTE | ~2017-04-05 | OP ---
Record Of Operation [facility] [address] [place]. [address] NAME: JYOTI ESTRADA : 55 STATUS : ADM IN PAT#: [id number] AGE: 61 ADM/REG DATE : 04/05/17 MR#: [id number] REPORT SERV DATE: 04/08/17 DICTATED BY: FILI CABRERA II DATE: 04/08/17 REPORT STATUS : Draft TRANSCRIBED BY: MODRubi DATE: 04/08/17 DATE OF PROCEDURE: 04/07/2017 PREOPERATIVE DIAGNOSES: 1. Cellulitis of left leg. 2. Peripheral vascular disease. 3. Left leg claudication. POSTOPERATIVE DIAGNOSES: 1. Cellulitis of left leg. 2. Peripheral vascular disease. 3. Left leg claudication. PROCEDURES: 1. Abdominal aortogram. 2. Left leg angiogram. 3. Percutaneous angioplasty of the left tibioperoneal trunk. ANESTHESIA: Local with MAC. IV FLUIDS: 500 mL. CONTRAST: Thirty-eight. ESTIMATED BLOOD LOSS: 10 mL. DESCRIPTION OF PROCEDURE: The patient was taken to the operating room and placed in supine position on the table. Both groins were prepped and draped. We used ultrasound to identify the right common femoral artery, performed a puncture, and placed a 5-Irish sheath. Aortogram was performed demonstrating a patent abdominal aorta. Both common and external iliac arteries were widely patent. There was mild stenosis noted within the internal iliac on the left side. We then passed a catheter over the bifurcation, left leg angiogram was performed demonstrating a patent common, profunda, and superficial femoral artery. The calcification was seen, but no significant stenosis. There was flow demonstrated down through the popliteal to the below knee segment. All three tibial vessels were patent. There was a focal stenosis within the mid tibioperoneal trunk of greater than 60%. This does appear to be flow limiting. We then passed a 6-Irish sheath over the bifurcation. We were able to pass a wire through the tibioperoneal trunk. We then brought a 4 mm angioplasty balloon, this was a chocolate balloon into the field and percutaneous angioplasty was performed with two inflations with the chocolate balloon with initial inflation for three minutes. Completion angiogram demonstrates excellent result from angioplasty. There was no further stenosis seen. There was no dissection. There was no extravasation. Improved flow was noted within the posterior tibial artery. We then removed all the wires and catheters and closed percutaneously. At the end of procedure, the patient was stable. She tolerated it well. She was transported to recovery room in good condition. Record Of Operation [place] [id number] [place]. [address] NAME: JYOTI ESTRADA : 55 STATUS : ADM IN [facility]#: [id number] AGE: 61 ADM/REG DATE : 04/05/17 MR#: [id number] REPORT SERV DATE: 04/08/17 DICTATED BY: FILI CABRERA II DATE: 04/08/17 REPORT STATUS : Draft TRANSCRIBED BY: MODRubi DATE: 04/08/17 LS/JESSENIA Fili Cabrera II, M.D. / [id number] CC: Juan Luis Alvarado II, M.D.
--- NOTE | ~2017-04-05 | HP ---
History And Physical [place] [id number] [facility] [place]. [address] NAME: JYOTI ESTRADA : 55 STATUS : ADM [facility]#: [id number] AGE: 61 ADM/REG DATE : 04/05/17 MR#: [id number] REPORT SERV DATE: 04/06/17 DICTATED BY: JENELLE HOLLAND DATE: 04/06/17 REPORT STATUS : Draft TRANSCRIBED BY: MODRubi DATE: 04/06/17 DATE OF ADMISSION: 04/05/2017 HISTORY OF PRESENT ILLNESS: She is a 61-year-old black female, who 2 weeks ago, joined our [facility] program. She lives independently at [facility]. She qualified for a PACE program due to some cognitive decline, gait instability, diabetic neuropathy and many chronic diseases. She presented to our clinic on the morning of 04/05/2017 with increased swelling and pain in her left lower extremity. She said this began the day before. She has had chronic problems with the left leg with some mild swelling, but it had exceeded what it normally does and was causing more pain and was hot. She was evaluated in the clinic and sent to the hospital for possible DVT or cellulitis and has been admitted. PAST MEDICAL HISTORY: Remarkable for a Grand mal seizure disorder, uncontrolled diabetes with neuropathy, uncontrolled hypertension, hyperlipidemia, chronic kidney disease level 2 to 3, iron deficient anemia, gait instability, osteoarthritis, reflux esophagitis, and urinary incontinence. ALLERGIES: SHE HAS NO ALLERGIES. MEDICATIONS: She has been on amlodipine 10 mg a day, clonidine 0.3 mg patch once a week, atorvastatin 20 mg a day, vitamin D once a month 50,000 units, glipizide-metformin combination 5/500 one before meals and at bedtime, hydralazine 50 mg twice a day, Lantus was just started in the clinic 15 units a day, lansoprazole 30 mg a day, Keppra 750 mg twice a day, phenytoin 100 mg t.i.d., Exelon patch 4.6 mg daily, Maxzide 25 mg daily, iron tablet 150 mg daily, multivitamin daily, and lactulose once a day as needed for constipation. PREVIOUS SURGERIES: Include a total abdominal hysterectomy with bilateral salpingo- oophorectomy. She said this was secondary to bleeding. She has had a craniotomy in 1998 for removal of a benign brain tumor in 12/20/2016. She had surgery of her left great toe for open reduction and internal fixation for dislocation of the interphalangeal joint and repair of a tendon. Following that, the pin was removed, but there was hardware failure and necessity for another surgery on 01/17/2017 with two pins apparently inserted and a repair done and these were later also taken out. She has had a very small wound at the tip of that toe since then, she reports. Her previous medical care has been under Dr. Cates and Dr. Bebeto Pedro, who was the neurosurgeon in the past. Dr. Alethea Garces has been her neurologist. Dr. Finch was her orthopedist for these surgeries and Dr. Stephens was the GI doctor. SOCIAL HISTORY: She is a . 3, para 3. Previously worked for [email or web address]. She is a former smoker. FAMILY HISTORY: Positive for hypertension, coronary artery disease, rheumatoid arthritis, and diabetes. REVIEW OF SYSTEMS: History And Physical [address] [address] NAME: JYOTI ESTRADA : 55 STATUS : ADM IN [facility]#: [id number] AGE: 61 ADM/REG DATE : 04/05/17 MR#: [id number] REPORT SERV DATE: 04/06/17 DICTATED BY: JENELLE HOLLAND DATE: 04/06/17 REPORT STATUS : Draft TRANSCRIBED BY: JESSENIA DATE: 04/06/17 Besides that in the present illness, she does have generalized confusion and has for about two years. This has not been documented yet as dementia. She is not having any headaches or swallowing problems. She has had no nausea, vomiting, diarrhea, or constipation. She has not noticed any blood in the stool. She does have a history of GERD. She does have urinary incontinence, history of left-sided weakness, left carpal tunnel syndrome, and poor balance. Also, there is a history of seizures in the distant past with a grand mal seizure; when an attempt was made to taper Dilantin, she had another grand mal seizure. She is now taking both Dilantin and Keppra. PHYSICAL EXAMINATION: VITAL SIGNS: Blood pressure is 174/91. Her heart rate is 84, respiratory rate 18, O2 saturation 100% on room air, and she is afebrile with a temperature presently at 98.2. Her weight was 202 pounds. Her height is pending. GENERAL: She is alert. She answers questions slowly with a flat affect, but she does answer appropriately. There is no trauma to the head. Her oropharynx is clear, and she is adequately hydrated. NECK: Supple. There is no adenopathy or enlargement of the thyroid or JVD. LUNGS: Clear to auscultation throughout. HEART: Regular rate and rhythm. No murmur. ABDOMEN: Soft, nontender. There is a scar in the lower mid abdomen. There is no discomfort in the groin on either side and no adenopathy noted. EXTREMITIES: Her left leg is warm below the knee compared to the right and it is swollen compared to the right. I did not detect any erythema of the leg. The circumference of the calf is measured 17 cm below the distal patella on the left and it is 35.5 cm, at the same site on the right is 30.5 cm. It is a pitting edema. I cannot palpate a dorsalis pedis on the left, but a duplex Doppler of the arterial system was done yesterday and she does have monophasic circulation to that leg with an VLADIMIR of 0.56. There is no DVT of that leg on venous ultrasound. There is a small wound to the tip of the left great toe about 0.7 cm with hard eschar, but no surrounding erythema and no tenderness to palpation of that. She also has a callus on the left medial ankle. Her chest x-ray was done yesterday and was normal. ASSESSMENT AND PLAN: 1. Cellulitis of the left lower extremity. Likely, she has strep cellulitis. I have spoken to the Pharmacy stewardship line who recommends to stop the vancomycin that was started yesterday and changed her over to an Ancef. She has peripheral artery disease. The blood cultures are pending. Procalcitonin was normal, and there is not a wound to culture. 2. She is presently on a statin. I will add aspirin and discuss with the patient, perhaps consulting Vascular. 3. Hypertension, uncontrolled. We will continue her amlodipine. We will check to see if her clonidine patch was changed yesterday at the once weekly change and if not, we will change it, and we will increase her hydralazine to 50 t.i.d. 4. Her diabetes is uncontrolled. We will increase her Levemir to 20 a day, put her on a sliding scale type 2 insulin, and consider changing her to Prandin prior to discharge from the metformin glyburide. Also, we will continue some p.o. metformin here. History And Physical [address] [place]. [address] NAME: JYOTI ESTRADA : 55 STATUS : ADM IN [facility]#: [id number] AGE: 61 ADM/REG DATE : 04/05/17 MR#: [id number] REPORT SERV DATE: 04/06/17 DICTATED BY: JENELLE HOLLAND DATE: 04/06/17 REPORT STATUS : Draft TRANSCRIBED BY: JESSENIA DATE: 04/06/17 5. Iron deficiency anemia. She had a workup in 2012, but we will go ahead and check her Hemoccults and UA for blood now. She is on p.o. iron. 6. Chronic kidney disease, level 2 to 3. We will avoid NSAIDs and contrasts. 7. Cognitive dysfunction. We will orient frequently. WILDER/JESSENIA Jenelle Holland M.D. / [id number] CC: Juan Luis Galindo M.D.
--- NOTE | ~2017-04-05 | CN ---
Consultation Report [facility] [address] [facility] [place]. [address] NAME: JYOTI CALLEJAS : 55 STATUS : ADM IN [facility]#: [id number] AGE: 61 ADM/REG DATE : 04/05/17 MR#: [id number] REPORT SERV DATE: 04/10/17 DICTATED BY: JUDITH BRAGA DATE: 04/09/17 REPORT STATUS : Draft TRANSCRIBED BY: MODL DATE: 04/09/17 ORTHOPEDIC CONSULTATION DATE OF CONSULTATION: 04/08/2017 REASON FOR CONSULTATION: Left foot osteomyelitis. HISTORY OF PRESENT ILLNESS: Connie Callejas is a pleasant 61-year-old female, who suffered a left hallux open fracture dislocation with EHL tendon avulsion on 12/20/2016. This was fixed in the operating room acutely. The patient did well throughout the initial recovery phase, although, a few weeks into it, she "kicked" and dislodged the stabilizing pin. The deformity recurred and we subsequently returned to the operating room on 01/17/2017 for revision ORIF. At this time, two pins were placed which were advanced across the IP and MTP joints. This was doing well until last couple days when it was noted to be increasingly erythematous and edematous. Her lab results revealed sedimentation rate of 89 and a CRP of 90. For this reason, she was admitted. She recently two weeks ago joined the [facility] [employer] program. She lives independently at [facility]. Due to cognitive decline, gait instability, diabetic neuropathy, and many chronic diseases, she qualified for the [facility]. She presented to the clinic on 04/05/2017, with complaints of increased swelling and pain in the left lower extremity. She was subsequently admitted. PAST MEDICAL HISTORY: Grand mal seizure disorder, uncontrolled diabetes with neuropathy, uncontrolled hypertension, hyperlipidemia, chronic kidney disease level 2-3, iron deficiency anemia, gait instability, osteoarthritis, reflux esophagitis, and urinary incontinence. ALLERGIES: SHE HAS NO ALLERGIES. MEDICATIONS: See admission H and P for full medications. PAST SURGICAL HISTORY: See above. A total abdominal hysterectomy. Craniotomy in 1998 for removal of benign brain tumor. SOCIAL HISTORY: She is a . Previously worked for [employer]. Former smoker. FAMILY HISTORY: Positive for hypertension, coronary artery disease, rheumatoid arthritis, and diabetes. REVIEW OF SYSTEMS: She was in her usual state of health at the time of the evaluation. She has some generalized confusion. She denied fevers, chills, nausea, vomiting, abdominal pain, shortness of breath, or chest pain. Consultation Report [address] [place]. [address] NAME: JYOTI CALLEJAS : 55 STATUS : ADM IN [facility]#: [id number] AGE: 61 ADM/REG DATE : 04/05/17 MR#: [id number] REPORT SERV DATE: 04/10/17 DICTATED BY: JUDITH BRAGA DATE: 04/09/17 REPORT STATUS : Draft TRANSCRIBED BY: JESSENIA DATE: 04/09/17 PHYSICAL EXAMINATION: VITAL SIGNS: Reveals, she is afebrile with temperature of 97.5, pulse 75, respirations 18, she is 97% on room air. GENERAL: She is sitting comfortably in a hospital bed. HEENT: Her head is atraumatic. Pupils are equal to light and reactive. MUSCULOSKELETAL: Cervical spine is nontender with gentle range of motion. No tenderness with gentle range of motion of her bilateral upper extremities. CHEST: Nonlabored breathing. HEART: Regular rate. ABDOMEN: Nondistended. EXTREMITIES: Bilateral lower extremities reveals no tenderness with gentle range of motion of her hips, knees, or ankles. Right lower extremity shows no open skin lesions. On the left lower extremity, she has erythema and edema surrounding the left great toe and first MTP joint. This edema extends to the mid aspect of her lower leg. There is no purulent drainage. There is a dense eschar at the tip of the left great toe. This is stable. Gentle range of motion of the toe is nontender. She has decreased sensation in a "stocking" distribution. LABORATORY DATA: Reveal a white count of 10.5 on 04/05/2017. This decreased to 6.7 on 04/08/2017. Sedimentation rate is 89. CRP was 90. Blood cultures were negative at day #2. DIAGNOSTIC DATA: X-rays taken on 04/06/2017, were consistent with the previously placed pin tract in the proximal phalanx and first metatarsal. The radiologist questioned the presence of osteomyelitis. MRI taken yesterday on 04/08/2017, was consistent with osteomyelitis along the pin track. IMPRESSION: Osteomyelitis, left great toe. PLAN: A lengthy discussion with her daughter, who is in the ER nurse at [employer]. We recommended an attempt to save the toe with open irrigation and debridement, and removal of all infected, devitalized tissue, and bone. The daughter agreed. We discussed our plan for packing the toe with dissolvable antibiotic beads. All the daughter's questions were answered and she wished to proceed. We will proceed with surgical intervention on 04/09/2017. We anticipate long-term IV antibiotics, due to the bone involvement. All of her daughter's questions were answered and she wished to proceed. Please feel free to call me on my cell phone at [phone], with additional questions or concerns. 55 minutes was used for this consultation including review of the medical record, review of the radiologic studies, as well as [id number] time with the patient and her family. Consultation Report [address] [place]. [address] NAME: JYOTI CALLEJAS : 55 STATUS : ADM IN [facility]#: [id number] AGE: 61 ADM/REG DATE : 04/05/17 MR#: [id number] REPORT SERV DATE: 04/10/17 DICTATED BY: JUDITH BRAGA DATE: 04/09/17 REPORT STATUS : Draft TRANSCRIBED BY: JESSENIA DATE: 04/09/17 JAY/JESSENIA Judith Braga MD / [id number] CC: Juna Luis Galindo M.D.
[2017-04-05] MEDS ORDERED: NORV10 PO (16:23)
[2017-04-05] MEDS ORDERED: CATAPRES3 TOP (16:24)
[2017-04-05] MEDS ORDERED: LANTUS SC (16:24)
[2017-04-05] MEDS ORDERED: METAGLIP1 TA2 PO (16:25)
[2017-04-05] MEDS ORDERED: APRES50 PO (16:25)
[2017-04-05] MEDS ORDERED: CONSTULOSE PO (16:26)
[2017-04-05] MEDS ORDERED: CENTRUM PO (16:26)
[2017-04-05] MEDS ORDERED: KEPPRA750 MG PO (16:26)
[2017-04-05] MEDS ORDERED: D100 PO (16:26)
[2017-04-05] MEDS ORDERED: POLY-IRON PO (16:27)
[2017-04-05] MEDS ORDERED: EXELON4.6T TOP (16:27)
[2017-04-05] MEDS ORDERED: LIPITOR20 PO (16:28)
[2017-04-05] MEDS ORDERED: VITD PO (16:28)
[2017-04-05] MEDS ORDERED: MAX25 PO (16:28)
[2017-04-05] MEDS ORDERED: PREV30 PO (16:29)
[2017-04-05 16:47] LABS: BASOPHILS 0.3 %; BASOPHILS ABSOLUTE 0.03 10/3/uL (0.0-0.16); EOSINOPHILS ABSOLUTE 0.11 10/3/uL (0.0-0.53); HEMATOCRIT 32.6 % (36.0-48.0); HEMOGLOBIN 10.8 g/dL (12.0-16.0); IMMATURE GRANULOCYTES 0.5 %; IMMATURE GRANULOCYTES ABSOLUTE 0.05 10/3/uL (0.0-0.11); LYMPHOCYTES ABSOLUTE 1.89 10/3/uL (0.67-4.30); MEAN CORPUS HGB CONC 33.1 g/dL (32.0-36.0); MEAN CORPUSCULAR HEMOGLOB 26.2 pg (26.0-34.0); MEAN CORPUSCULAR VOLUME 79.1 fL (80-100); MEAN PLATELET VOLUME 10.4 fL (9.2-13.0); MONOCYTES ABSOLUTE 1.16 10/3/uL (0.21-1.20); NEUTROPHILS 69.2 %; NEUTROPHILS ABSOLUTE 7.27 10/3/uL (2.02-8.40); PLATELET COUNT 241 10/3/uL (150-400); RBC DISTRIBUTION WIDTH 14.6 % (12.0-16.0); RED CELL COUNT 4.12 10/6/uL (4.0-5.6)
[2017-04-05 16:52] LABS: ER CBC TAT 0 Hrs 10 Mins; MANUAL DIFF NO %; WHITE BLOOD CELLS 10.5 10/3/uL (4.5-10.5)
[2017-04-05 16:55] LABS: PARTIAL THROMBO TIME 33.7 SEC (22.5-37.2); PROTIME (NOT ORD) 13.1 SEC (12.0-14.5)
[2017-04-05 17:04] LABS: CALCIUM, SERUM 8.9 MG/DL (8.5-10.4); CHLORIDE, SERUM 102 MMOL/L (96-112); CO2 (CARBON DIOXIDE) 29 MMOL/L (24-34); CREATININE 1.22 MG/DL (0.55-1.02); GFR AFRICAN AMERICAN 55 ML/MIN (>=60); GFR NON AFRICAN AMERICAN 48 ML/MIN (>=60); POTASSIUM, SERUM 4.3 MMOL/L (3.5-5.3); SODIUM, SERUM 137 MMOL/L (135-148)
[2017-04-05 17:08] LABS: BUN (BLOOD UREA NITROGEN) 17 MG/DL (6-23); GLUCOSE, SERUM 178 MG/DL (60-99)
[2017-04-05 17:09] LABS: CHEST PAIN PROFILE TAT 0 Hrs 27 Mins; TROPONIN I 0.41 NG/ML (<0.05)
[2017-04-06 06:34] LABS: HEMOGLOBIN 9.8 g/dL (12.0-16.0); MEAN CORPUS HGB CONC 34.3 g/dL (32.0-36.0); MEAN CORPUSCULAR HEMOGLOB 26.6 pg (26.0-34.0); MEAN CORPUSCULAR VOLUME 77.7 fL (80-100); PLATELET COUNT 204 10/3/uL (150-400); RBC DISTRIBUTION WIDTH 14.4 % (12.0-16.0); RED CELL COUNT 3.68 10/6/uL (4.0-5.6); WHITE BLOOD CELLS 7.4 10/3/uL (4.5-10.5)
[2017-04-06 06:35] LABS: HEMATOCRIT 28.6 % (36.0-48.0)
[2017-04-06 06:36] LABS: MANUAL DIFF YES %
[2017-04-06 06:46] LABS: BUN (BLOOD UREA NITROGEN) 14 MG/DL (6-23); CALCIUM, SERUM 8.4 MG/DL (8.5-10.4); CHLORIDE, SERUM 106 MMOL/L (96-112); CO2 (CARBON DIOXIDE) 27 MMOL/L (24-34); GFR AFRICAN AMERICAN 92 ML/MIN (>=60); GFR NON AFRICAN AMERICAN 80 ML/MIN (>=60); POTASSIUM, SERUM 3.7 MMOL/L (3.5-5.3); SODIUM, SERUM 140 MMOL/L (135-148)
[2017-04-06 06:48] LABS: GLUCOSE, SERUM 134 MG/DL (60-99)
[2017-04-06 06:59] LABS: BASOPHILS 1 %; BASOPHILS ABSOLUTE (CALC) 0.07 10/3/uL (0.0-0.16); EOSINOPHILS 2 %; EOSINOPHILS ABSOLUTE (CALC) 0.15 10/3/uL (0.0-0.53); LYMPHOCYTES 21 %; LYMPHOCYTES ABSOLUTE (CALC) 1.55 10/3/uL (0.67-4.30); MONOCYTES 14 %; MONOCYTES ABSOLUTE (CALC) 1.04 10/3/uL (0.21-1.20); NEUTROPHILS ABSOLUTE (CALC) 4.59 10/3/uL (2.02-8.40); PLATELET ESTIMATE ADQ (ADEQUATE); RBC MORPHOLOGY NORM (NORMAL); SEGMENTED NEUTROPHIL (0) 62 %; TOTAL NUCLEATED CELLS 100
[2017-04-06 07:16] LABS: PROCALCITONIN 0.05 ng/mL (<0.5)
[2017-04-06 21:44] LABS: ASCORBIC ACID (UR NOT ORDER) NEG (NEG); BILIRUBIN, URINE NEGATIVE (NEG); KETONE, URINE NEGATIVE (NEG); LEUKOCYTE ESTERASE(NOT OR NEG (NEG); WBC (NOT ORDERED) (RFLEX) < 1 (0-5)
[2017-04-07 06:27] LABS: BASOPHILS 0.8 %; BASOPHILS ABSOLUTE 0.05 10/3/uL (0.0-0.16); EOSINOPHILS 2.5 %; EOSINOPHILS ABSOLUTE 0.16 10/3/uL (0.0-0.53); HEMATOCRIT 27.6 % (36.0-48.0); HEMOGLOBIN 9.4 g/dL (12.0-16.0); IMMATURE GRANULOCYTES 0.6 %; IMMATURE GRANULOCYTES ABSOLUTE 0.04 10/3/uL (0.0-0.11); LYMPHOCYTES 23.2 %; LYMPHOCYTES ABSOLUTE 1.48 10/3/uL (0.67-4.30); MEAN CORPUS HGB CONC 34.1 g/dL (32.0-36.0); MEAN CORPUSCULAR HEMOGLOB 26.7 pg (26.0-34.0); MEAN CORPUSCULAR VOLUME 78.4 fL (80-100); MEAN PLATELET VOLUME 10.5 fL (9.2-13.0); MONOCYTES 12.7 %; MONOCYTES ABSOLUTE 0.81 10/3/uL (0.21-1.20); NEUTROPHILS 60.2 %; NEUTROPHILS ABSOLUTE 3.85 10/3/uL (2.02-8.40); PLATELET COUNT 214 10/3/uL (150-400); RBC DISTRIBUTION WIDTH 14.4 % (12.0-16.0); RED CELL COUNT 3.52 10/6/uL (4.0-5.6); WHITE BLOOD CELLS 6.4 10/3/uL (4.5-10.5)
[2017-04-07 06:28] LABS: MANUAL DIFF NO %
[2017-04-07 06:40] LABS: BUN (BLOOD UREA NITROGEN) 13 MG/DL (6-23); CALCIUM, SERUM 8.1 MG/DL (8.5-10.4); CHLORIDE, SERUM 106 MMOL/L (96-112); CO2 (CARBON DIOXIDE) 27 MMOL/L (24-34); CREATININE 0.89 MG/DL (0.55-1.02); GFR AFRICAN AMERICAN 81 ML/MIN (>=60); GFR NON AFRICAN AMERICAN 70 ML/MIN (>=60); POTASSIUM, SERUM 3.9 MMOL/L (3.5-5.3); SODIUM, SERUM 139 MMOL/L (135-148)
[2017-04-07 06:41] LABS: GLUCOSE, SERUM 199 MG/DL (60-99)
[2017-04-08 06:16] LABS: BASOPHILS 1.2 %; BASOPHILS ABSOLUTE 0.08 10/3/uL (0.0-0.16); EOSINOPHILS 2.5 %; EOSINOPHILS ABSOLUTE 0.17 10/3/uL (0.0-0.53); IMMATURE GRANULOCYTES 0.3 %; IMMATURE GRANULOCYTES ABSOLUTE 0.02 10/3/uL (0.0-0.11); LYMPHOCYTES 26.5 %; LYMPHOCYTES ABSOLUTE 1.77 10/3/uL (0.67-4.30); MEAN CORPUS HGB CONC 32.9 g/dL (32.0-36.0); MEAN CORPUSCULAR HEMOGLOB 26.2 pg (26.0-34.0); MEAN CORPUSCULAR VOLUME 79.8 fL (80-100); MEAN PLATELET VOLUME 10.7 fL (9.2-13.0); MONOCYTES 9.9 %; MONOCYTES ABSOLUTE 0.66 10/3/uL (0.21-1.20); NEUTROPHILS 59.6 %; NEUTROPHILS ABSOLUTE 3.99 10/3/uL (2.02-8.40); PLATELET COUNT 219 10/3/uL (150-400); RBC DISTRIBUTION WIDTH 14.5 % (12.0-16.0); RED CELL COUNT 3.81 10/6/uL (4.0-5.6); WHITE BLOOD CELLS 6.7 10/3/uL (4.5-10.5)
[2017-04-08 06:18] LABS: HEMATOCRIT 30.4 % (36.0-48.0); MANUAL DIFF NO %
[2017-04-08 06:26] LABS: CALCIUM, SERUM 8.7 MG/DL (8.5-10.4); CHLORIDE, SERUM 107 MMOL/L (96-112); CO2 (CARBON DIOXIDE) 26 MMOL/L (24-34); CREATININE 0.95 MG/DL (0.55-1.02); GFR AFRICAN AMERICAN 75 ML/MIN (>=60); GFR NON AFRICAN AMERICAN 65 ML/MIN (>=60); SODIUM, SERUM 139 MMOL/L (135-148)
[2017-04-08 06:27] LABS: BUN (BLOOD UREA NITROGEN) 9 MG/DL (6-23); GLUCOSE, SERUM 247 MG/DL (60-99)
[2017-04-09 06:01] LABS: BASOPHILS 0.8 %; BASOPHILS ABSOLUTE 0.05 10/3/uL (0.0-0.16); EOSINOPHILS 3.3 %; HEMATOCRIT 29.9 % (36.0-48.0); HEMOGLOBIN 9.8 g/dL (12.0-16.0); IMMATURE GRANULOCYTES 0.8 %; IMMATURE GRANULOCYTES ABSOLUTE 0.05 10/3/uL (0.0-0.11); LYMPHOCYTES 26.6 %; LYMPHOCYTES ABSOLUTE 1.61 10/3/uL (0.67-4.30); MEAN CORPUS HGB CONC 32.8 g/dL (32.0-36.0); MEAN CORPUSCULAR HEMOGLOB 25.8 pg (26.0-34.0); MEAN CORPUSCULAR VOLUME 78.7 fL (80-100); MEAN PLATELET VOLUME 10.6 fL (9.2-13.0); MONOCYTES 10.7 %; MONOCYTES ABSOLUTE 0.65 10/3/uL (0.21-1.20); NEUTROPHILS 57.8 %; NEUTROPHILS ABSOLUTE 3.49 10/3/uL (2.02-8.40); PLATELET COUNT 232 10/3/uL (150-400); RBC DISTRIBUTION WIDTH 14.3 % (12.0-16.0); WHITE BLOOD CELLS 6.1 10/3/uL (4.5-10.5)
[2017-04-09 06:02] LABS: MANUAL DIFF NO %
[2017-04-09 06:15] LABS: BUN (BLOOD UREA NITROGEN) 12 MG/DL (6-23); CHLORIDE, SERUM 106 MMOL/L (96-112); CO2 (CARBON DIOXIDE) 26 MMOL/L (24-34); CREATININE 0.83 MG/DL (0.55-1.02); GFR AFRICAN AMERICAN 88 ML/MIN (>=60); GFR NON AFRICAN AMERICAN 76 ML/MIN (>=60); GLUCOSE, SERUM 215 MG/DL (60-99); POTASSIUM, SERUM 3.8 MMOL/L (3.5-5.3); SODIUM, SERUM 140 MMOL/L (135-148)
[2017-04-10 07:15] LABS: BUN (BLOOD UREA NITROGEN) 12 MG/DL (6-23); CALCIUM, SERUM 9.2 MG/DL (8.5-10.4); CHLORIDE, SERUM 105 MMOL/L (96-112); CO2 (CARBON DIOXIDE) 26 MMOL/L (24-34); CREATININE 0.99 MG/DL (0.55-1.02); GFR AFRICAN AMERICAN 71 ML/MIN (>=60); GFR NON AFRICAN AMERICAN 62 ML/MIN (>=60); GLUCOSE, SERUM 178 MG/DL (60-99); SODIUM, SERUM 136 MMOL/L (135-148)
[2017-04-11 13:31] LABS: BASOPHILS 0.4 %; BASOPHILS ABSOLUTE 0.04 10/3/uL (0.0-0.16); EOSINOPHILS 1.7 %; EOSINOPHILS ABSOLUTE 0.16 10/3/uL (0.0-0.53); HEMATOCRIT 29.7 % (36.0-48.0); HEMOGLOBIN 10.1 g/dL (12.0-16.0); IMMATURE GRANULOCYTES 0.6 %; IMMATURE GRANULOCYTES ABSOLUTE 0.06 10/3/uL (0.0-0.11); LYMPHOCYTES 21.1 %; LYMPHOCYTES ABSOLUTE 1.96 10/3/uL (0.67-4.30); MEAN CORPUSCULAR HEMOGLOB 26.2 pg (26.0-34.0); MEAN CORPUSCULAR VOLUME 77.1 fL (80-100); MEAN PLATELET VOLUME 10.8 fL (9.2-13.0); MONOCYTES 12.9 %; NEUTROPHILS 63.3 %; NEUTROPHILS ABSOLUTE 5.89 10/3/uL (2.02-8.40); PLATELET COUNT 251 10/3/uL (150-400); RBC DISTRIBUTION WIDTH 14.5 % (12.0-16.0); RED CELL COUNT 3.85 10/6/uL (4.0-5.6)
[2017-04-11 13:32] LABS: MANUAL DIFF NO %; WHITE BLOOD CELLS 9.3 10/3/uL (4.5-10.5)
[2017-04-23] MEDS ORDERED: PRAND1 PO (21:24)
[2017-04-23] MEDS ORDERED: NOVOLOG SC (21:24)
[2017-04-23] MEDS ORDERED: NORV10 PO (21:25)
[2017-04-23] MEDS ORDERED: ASAB PO (21:25)
[2017-04-23] MEDS ORDERED: HCTZ25B PO (21:25)
[2017-04-23] MEDS ORDERED: LANTUS SC (21:26)
[2017-04-23] MEDS ORDERED: PRIN20 PO (21:26)
[2017-04-23] MEDS ORDERED: EXELON4.6T TOP (21:26)
[2017-04-23] MEDS ORDERED: KEPPRA750 MG PO (21:26)
[2017-04-23] MEDS ORDERED: POLY IRON 150 MG PO (21:27)
[2017-04-23] MEDS ORDERED: MULTIVITAMI1 PO (21:27)
[2017-04-23] MEDS ORDERED: PREV30 PO (21:27)
[2017-04-23] MEDS ORDERED: D100 PO (21:33)
[2017-04-23] MEDS ORDERED: HYDRALAZINE100 MG PO (21:33)
[2017-04-23] MEDS ORDERED: VANCO1P IV (21:34)
[2017-04-23] MEDS ORDERED: ALIGN4 MG PO (21:35)
[2017-04-23] MEDS ORDERED: VITD PO (21:35)
[2017-04-23] MEDS ORDERED: CATAPRES3 TOP (21:36)
== END 2017-04-11 17:27 | DRG 629 ==
LOC: ER 13:03 → 4SO 18:24
PROVIDERS: Family Medicine; Internal Medicine Geriatric Medicine; Internal Medicine Infectious Disease; Nurse Practitioner Family
DX: E11.69 Type 2 diabetes mellitus with other specified complication (principal); L03.116 Cellulitis of left lower limb; L97.529 Non-pressure chronic ulcer of other part of left foot with unspecified severity; E11.22 Type 2 diabetes mellitus with diabetic chronic kidney disease; E11.621 Type 2 diabetes mellitus with foot ulcer; F03.90 Unspecified dementia, unspecified severity, without behavioral disturbance, psychotic disturbance, mood disturbance, and anxiety; M86.8X8 Other osteomyelitis, other site; G40.802 Other epilepsy, not intractable, without status epilepticus; E11.42 Type 2 diabetes mellitus with diabetic polyneuropathy; E78.5 Hyperlipidemia, unspecified; E11.65 Type 2 diabetes mellitus with hyperglycemia; D50.9 Iron deficiency anemia, unspecified; I12.9 Hypertensive chronic kidney disease with stage 1 through stage 4 chronic kidney disease, or unspecified chronic kidney disease; R32 Unspecified urinary incontinence; K21.9 Gastro-esophageal reflux disease without esophagitis; Z79.84 Long term (current) use of oral hypoglycemic drugs; Z79.899 Other long term (current) drug therapy; Z87.891 Personal history of nicotine dependence; E11.51 Type 2 diabetes mellitus with diabetic peripheral angiopathy without gangrene; I70.212 Atherosclerosis of native arteries of extremities with intermittent claudication, left leg; N18.3 Chronic kidney disease, stage 3 (moderate); B95.7 Other staphylococcus as the cause of diseases classified elsewhere
CPT/HCPCS: 36569; 37228; 71010; 73630-LT; 73718-LT; 73720-LT; 75625; 75710; 80048; 80177; 81001; 82272; 82962; 83605; 83735; 84145; 84484; 85025; 85610; 85652; 85730; 86140; 87040; 87070; 87075; 87077; 87186; 87205; 93926; 93971; 96374; 99285; A9270-GY; A9577; C1713; C1725; C1751; C1760; C1769; C1894; J0690; J2250; J2270; J2370; J2405; J3010; J3260; J3370; Q9967